=== PATIENT | female | born 1930 | race Caucasian/White ===

== ENCOUNTER 2016-12-01 15:33 | Emergency (ER) | payer MEDICARE, BC ==
[2016-12-01] MEDS ORDERED: DIPHTH,PERTUSS(ACELL),TET VAC 0.5 ML VIAL IM ONE ×2 (16:53→17:00)
--- NOTE | 2016-12-01 16:56 | ERNOTE ---
Head Injury HPI - Narrative Date of Service: 12/01/16 - General Injury to: face Time Seen by Provider: 12/01/16 16:00 Source: patient, family Exam Limitations: no limitations - Immun/Allergies/Home Medications Immunization: IMMUNIZATION HX Immunizations Up to Date Yes History of Influenza Vaccine Yes Hx Pneumococcal Vaccination Yes Allergies/Adverse Reactions: Allergies Allergy/AdvReac Type Severity Reaction Status Date / Time No Known Allergies Allergy Unverified 12/01/16 15:47 Home Medications: HOME MEDICATIONS Calcium Carbonate [Calcium] 500 mg PO DAILY 12/01/16 [Last Taken Unknown] Cholecalciferol (Vitamin D3) [Vitamin D3] 2,000 unit PO DAILY 12/01/16 [Last Taken Unknown] Cyanocobalamin (Vitamin B-12) [Vitamin B12] 2,000 mcg PO DAILY 12/01/16 [Last Taken Unknown] Glucosamine HCl 500 mg PO DAILY 12/01/16 [Last Taken Unknown] Levothyroxine Sodium [Synthroid] 50 mcg PO DAILY 12/01/16 [Last Taken Unknown] Lisinopril [Prinivil] 20 mg PO DAILY 12/01/16 [Last Taken Unknown] [place] Oil/[place]-3 Fatty Acids [Fish Oil] 1,200 mg PO DAILY 12/01/16 [Last Taken Unknown] metroNIDAZOLE [Metrocream] 45 gm TP DAILY 12/01/16 [Last Taken Unknown] - History of Present Illness Narrative: 85 y/o female brought to the ED by her daughter for a facial laceration due to a fall. The patient is unsure exactly how she fell, but believes that she stubbed her toe on a dresser and that her glasses are what cut her face. She denies any LOC. She also reports bruising to both wrists from trying to catch herself and an abrasion on her left knee. She is unsure when her last tetanus vaccination was. Occurred: just prior to arrival Location Occurred: home Severity: mild Head Injury Location: facial Method of Injury: Reports: fell Reason for Fall: Reports: tripped Loss of Consciousness: Reports: no loss of consciousness, remembers event, remembers coming to hospital Associated Symptoms: Denies: chest pain, shortness of breath, headaches, neck pain, weakness, syncope, nausea, vomiting Review of Systems - Review of Systems Constitutional: Absent: recent illness, fatigue, malaise EYE: Absent: eye pain, vision changes ENT: Absent: ear discharge, nasal drainage Respiratory: Present: See HPI Cardiology: Present: See HPI Gastrointestinal/Abdominal: Present: See HPI Genitourinary: Present: no symptoms reported Musculoskeletal: Absent: joint pain, joint swelling Skin: Present: change in color. Absent: lesions, lumps Neurological: Absent: headache, dizziness/light-headedness Endocrine: Present: no symptoms reported Hematologic/Lymphatic: Present: no symptoms reported Psych: Present: no symptoms reported - Patient's Past Medical History Patient History - Medical: Anxiety, Arthritis, Osteoporosis Patient History - Cardiac/Respiratory: Hypertension Patient History - Cancer: Colon, Skin Patient History - Surgical Procedures: No surgical history Patient History - Other: None LMP (females 10-50): Menopausal - Social History Living Situations: alone Abuse History: No History of abuse Psych History: No pertinent hx Smoking Status: Never smoker Have you smoked in the past 12 months: No Do you dip or chew tobacco: No Alcohol Use: none Drug Use: none - Immunizations Immunizations Up to Date: No Hx Pneumococcal Vaccination: Yes History of Influenza Vaccine: Yes Physical Exam - Physical Exam General Appearance: Present: wd/wn, alert, no apparent distress Eye Exam: Normal inspection: bilateral, PERRL: bilateral Ears, Nose, Throat: Present: normal ENT inspection, other - laceration to left brow, no facial deformity Neck: Present: normal inspection, nontender, supple, full range of motion. Absent: tender lateral, tender posterior midline Respiratory: Present: no respiratory distress, normal breath sounds, no accessory muscle use, lungs clear Cardiovascular/Chest: Present: regular rate, rhythm, no murmur, normal peripheral pulses Extremity Exam: Present: normal range of motion, no edema, other - Ecchymosis present on both volar wrists but nontender to palpation Neurological Exam: Present: alert, oriented, normal mood/affect, no motor/ sensory deficits Skin Exam: Present: normal color, warm/dry, other - small abrasion on left knee ED Progress - Vital Signs Patient's Vital Signs:: I have reviewed the patient's vital signs. Vital Signs: Vital Signs 12/01/16 15:47 Temperature 37.1 C Pulse Rate 77 Respiratory 18 Rate Blood Pressure 161/85 O2 Sat by Pulse 95 Oximetry - Progress/Reassessment Chief Complaint: Laceration Progress:: Improved Procedures Left lateral brow Anesthesia: Lidocaine w/ Epi Length of Repair/Wound (cm): 2.5 Wound's Depth/Shape: into subcutaneous, irregular, contused tissue Wound Explored: clean, to base, in bloodless field, no foreign body Wound Intervention: irrigated w/saline Wound Repaired With: sutures Suture Size/Type: 6-0, nylon Number of Sutures: 6 Layer Closure: Simple Wound Dressing: sterile dressing applied Complications: Pt kathie procedure well Departure Clinical Impression: Laceration of brow without complication Qualifiers: Encounter type: initial encounter Qualified Code(s): S01.81XA - Laceration without foreign body of other part of head, initial encounter - Departure Disposition: Home Follow Up Needed Condition: Good Instructions: Sutured Wound Care, [id number] Additional Instructions: Keep wound covered and dry for 24 hours May then wash gently with soap and water Apply antibiotic ointment twice a day Have sutures removed in 5 days Referrals: Nataly Gunn MD [Primary Care Provider] -
[2016-12-01 17:07] VITALS: BP 177/88
== END 2016-12-01 17:12 | disposition home or self-care (01) ==
LOC: ER 15:33
PROC: 0JQ10ZZ Repair Face Subcutaneous Tissue and Fascia, Open Approach (ICD-10-PCS; principal; 2016-12-01)
DX: S01.81XA Laceration without foreign body of other part of head, initial encounter (principal); W18.30XA Fall on same level, unspecified, initial encounter; Z91.81 History of falling; Y93.9 Activity, unspecified; Y92.003 Bedroom of unspecified non-institutional (private) residence as the place of occurrence of the external cause; I10 Essential (primary) hypertension; M19.90 Unspecified osteoarthritis, unspecified site; M81.0 Age-related osteoporosis without current pathological fracture; Z85.038 Personal history of other malignant neoplasm of large intestine; Z85.828 Personal history of other malignant neoplasm of skin; Z23 Encounter for immunization

== ENCOUNTER 2018-05-21 21:09 | Inpatient (IN) | payer BC, MEDICARE ==
--- NOTE | 2018-05-21 21:24 | ERNOTE ---
Neuro HPI ER Record Presenting Symptoms: impaired speech Time Seen by Provider: 05/21/18 21:10 Source: family Exam Limitations: no limitations Immunizations: IMMUNIZATION HX Immunizations Up to Date No: Unknown History of Influenza Vaccine No Hx Pneumococcal Vaccination No Allergies/Adverse Reactions: Allergies Allergy/AdvReac Type Severity Reaction Status Date / Time No Known Allergies Allergy Verified 05/01/18 11:55 Home Medications: HOME MEDICATIONS Cholecalciferol (Vitamin D3) [Vitamin D3] 2,000 unit PO DAILY 12/01/16 [Last Taken Unknown] Cyanocobalamin (Vitamin B-12) [Vitamin B12] 2,000 mcg PO DAILY 12/01/16 [Last Taken Unknown] levothyroxine 50 mcg tablet 50 mcg PO DAILY #90 tab 02/18/18 [Last Taken Unknown] lisinopril 20 mg tablet 20 mg PO DAILY #90 tab 02/18/18 [Last Taken Unknown] memantine 10 mg tablet 10 mg PO BID #180 tab 02/26/18 [Last Taken Unknown] - History of Present Illness Narrative: pt's daughter states that approx 90 min [employer]CRE[employer] pt had some slurred speech. She also had some difficulty walking although she has had difficulty with balance this seemed worse to her daughter. Pt has improved since onset and has no discernable deficits upon presentation. Onset: sudden onset Severity: mild - Character of Deficits New weakness: Present: other - none Altered sensation: Present: other - none Baseline Cognition: Present: alert but disoriented to time Baseline Gait: Present: walks only w/ assistance Review of Systems - Review of Systems Constitutional: Absent: recent illness, fever, chills EYE: Absent: vision changes ENT: Absent: nose congestion, nasal drainage Respiratory: Absent: shortness of breath Gastrointestinal/Abdominal: Absent: nausea, vomiting, abdominal pain Genitourinary: Absent: frequency, pain, dysuria Musculoskeletal: Absent: muscle pain Skin: Absent: rash Neurological: Present: See HPI. 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 Lovett left/right 04/16/2007 and 04/30/2007 Facial basal cell cancer Onset Date: ~10/05/15 right nasal side wall H/O colonoscopy Onset Date: ~10/30/1107/2011 - tubular adenoma with low grade dysplasia x2. 10/2011 [facility] 2 tubular adenoma, 1 sessile serrated adenoma, 1 hyperplastic polyp. 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 Onset Date: ~10/05/15 [facility] left knee Status post epidural steroid injection Onset Date: ~12/2008 L%-S1 bulging discs Family History: Family History (Last Reviewed 05/21/18 @ 21:19 by Kel Guevara DO) Father Heart disease Mother Diabetes Myocardial infarction Hypertension Brother Heart disease Social History: Preferred Language [place] Smoking Status Never smoker Abuse History No History of abuse Psych History No pertinent hx (Last Updated 05/02/18 @ 16:02 by Tima Reese MD) No Social History Section defined Physical Exam - Physical Exam General Appearance: Present: wd/wn, alert, no apparent distress, thin, cheerful Head Exam: Present: normal inspection, no evidence of injury Eye Exam: Normal inspection: bilateral, PERRL: bilateral, EOMI: bilateral Ears, Nose, Throat: Present: normal ENT inspection Neck: Present: normal inspection, nontender, supple Respiratory: Present: no respiratory distress, normal breath sounds, chest nontender, lungs clear Cardiovascular/Chest: Present: regular rate, rhythm, no murmur Gastrointestinal/Abdominal: Present: normal bowel sounds, nontender, nondistended, soft Back Exam: Present: normal inspection, normal range of motion Extremity Exam: Present: normal inspection, normal range of motion, no edema Neurological Exam: Present: alert, oriented, normal mood/affect, no motor/sensory deficits, 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 II-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 nml as tested Skin Exam: Present: normal color, warm/dry Lymphatic Exam: Present: no adenopathy Verena Coma Scale - Assess Eye Opening: Spontaneous Motor: Obeys Commands Verbal: Oriented - Total Coma Scale Total: 15 Initial Stroke Assessment - Date/Time of assessment Stroke Scale Date: 05/21/18 Stroke Scale Time: 21:10 - NIH Stroke Scale Level of Consciousness: Alert LOC Questions (Year and Age): Answers both correctly LOC Commands (open/close eyes/fist): Performs both correctly Lateral Gaze Paresis: None Visual Field Loss: No visual loss Facial Palsy: Normal movement Right Arm Motor (10 sec hold): No drift Left Arm Motor (10 sec hold): No drift Right Leg Motor (5 sec hold): No drift Left Leg Motor (5 sec hold): No drift Limb Ataxia (finger/nose heel/herron): Absent Sensory Loss (pinprick arms/legs/face): No sensory loss Language Aphasia (description/naming/reading): No aphasia; normal Dysarthria (speech clarity): Normal articulation Neglect Inattention (visual/tactile/auditory/spatial/person): No neglect Initial Stroke Scale Score:: 0 Stroke Inclusion/Exclusion Cri - Inclusion Questions: Yes Onset of symptoms <3 1/2 hours of admission to ETC: Yes - Exclusion Questions: Major symptoms rapidly improving: No Seizure at onset of stroke: No SBP>185; DBP>110 at time treatment is to begin: No Patient received Heparin or Coumadin within 48 hours: No Patient has elevated PTT or Protime/INR: No Stroke, head injury, major surgery, serious trauma in 3 mon.: No Previous intracranial hemmorhage: No Recent CO: No Known AV malformation or aneurysm: No Blood glucose <50mg/dl or >400mg/dl: No NIHSS Score <4 or >22 performed by physician: Yes - Total NIHSS Score Score:: 2 - and 0. Secondary Stroke Assessment - Date/Time of assessment Stroke Scale Time: 21:52 - NIH Stroke Scale Level of Consciousness: Alert LOC Questions (Year and Age): Answers both correctly LOC Commands (open/close eyes/fist): Performs both correctly Lateral Gaze Paresis: None Visual Field Loss: No visual loss Facial Palsy: Minor paralysis Right Arm Motor (10 sec hold): No drift Left Arm Motor (10 sec hold): No drift Right Leg Motor (5 sec hold): No drift Left Leg Motor (5 sec hold): No drift Limb Ataxia (finger/nose heel/herron): Absent Sensory Loss (pinprick arms/legs/face): No sensory loss Language Aphasia (description/naming/reading): No aphasia; normal Dysarthria (speech clarity): Slurring, intelligeble Neglect Inattention (visual/tactile/auditory/spatial/person): No neglect Secondary Stroke Scale Total:: 2 Progress - Results and Orders Patient's Lab Results:: I have reviewed the patient's lab results. Results and Orders: Laboratory Tests 05/21/18 05/21/18 05/21/18 21:30 21:30 21:30 WBC 5.8 Hgb 13.1 Hct 39.2 Plt Count 246 ESR 14 PT INR (Anticoag Therapy) PTT (Janelle) Sodium 143 H Potassium 4.0 Chloride 107 H BUN 25 H Creatinine 1.11 Est GFR (Non-Af Amer) 49 L Random Glucose 128 H Calcium 9.1 AST 20 ALT 14 L Alkaline Phosphatase 94 Total Protein 6.4 Albumin 3.3 L Urine Color Urine Appearance Urine pH Ur Specific [place] Urine Protein Urine Glucose (UA) Urine Ketones Urine Blood Urine Nitrate Urine Bilirubin Urine Urobilinogen Ur Leukocyte Esterase Urine RBC Urine WBC Ur Epithelial Cells Urine Bacteria Urine Culture Comments 05/21/18 05/21/18 21:30 23:25 WBC Hgb Hct Plt Count ESR PT 10.4 INR (Anticoag Therapy) 1.04 PTT (Janelle) 25.2 Sodium Potassium Chloride BUN Creatinine Est GFR (Non-Af Amer) Random Glucose Calcium AST ALT Alkaline Phosphatase Total Protein Albumin Urine Color Pale yellow Urine Appearance Clear Urine pH 7.0 Ur Specific [place] 1.020 Urine Protein Negative Urine Glucose (UA) Negative Urine Ketones Negative Urine Blood Negative Urine Nitrate Negative Urine Bilirubin Negative Urine Urobilinogen Normal Ur Leukocyte Esterase Negative Urine RBC None seen Urine WBC 0-5 Ur Epithelial Cells 0-5 Urine Bacteria Trace Urine Culture Comments No culture indicated - Vital Signs Patient's Vital Signs:: I have reviewed the patient's vital signs. - CT/Ultrasound CT/Ultrasound Narrative: CT head without contrast. Chronic changes, no acute hemorrhage or evidence for ischemic CVA. - Progress/Reassessment Progress:: Improved Progress Note-Subjective: 05/21/18 21:55 Pt's daughter came out and said pt was worsening. Pt does have some dysarthria at this time and mild left sided facial droop. NIHSS still only 2. 05/21/18 23:26 After going back in the patient was improved again but still had some slight dysarthria. I spoke with Dr. Herrmann at 22: 45 and she is comfortable keeping the pt for observation if the pt's daughter is, I talked with the daughter and she is very comfortable with that plan. I called Dr. Herrmann back and she is agreeable with obs. admission. Departure Clinical Impression: TIA (transient ischemic attack) - Departure Disposition: Still a patient Condition: Good
[2018-05-21 21:36] LABS: Hematocrit 39.2 % (37.0-47.0); Hemoglobin 13.1 gm/dL (12.5-16.0); Mean Cell Volume 94.9 fl (78-100); Mean Corpuscular Hemoglobin 31.7 pg (27-31); Mean Corpuscular Hgb Conc 33.4 g/dl (32-36); Mean Platelet Volume 10.6 fl (8-12.5); Neutrophil # 3.3 K/mm3 (1.3-6.0); Neutrophil % 56.7 % (42-75.0); Platelet Count 246 K/mm3 (150-450); Red Blood Count 4.13 M/mm3 (4.2-5.4); White Blood Count 5.8 K/mm3 (4.0-10.5)
[2018-05-21 21:47] LABS: Albumin * 3.3 gm/dl (3.4-5.0); Anion Gap 11.5 mmol/L (6.8-13.8); BUN/Creatinine Ratio 22.5 (9.0-21.6); Bilirubin, Total 0.4 mg/dL (0.0-1.1); Ca. Corrected For Albumin 9.3 mg/dL (8.4-10.2); Calcium * 9.1 mg/dL (7.9-10.9); Carbon Dioxide 28.5 mmol/L (24-32.6); Total Protein 6.4 gm/dL (6.2-8.2)
[2018-05-21 22:05] LABS: Prothrombin Time (Patient) 10.4 Seconds (9.0-11.0)
[2018-05-21 22:06] LABS: INR 1.04 INR (0.90-1.10); Partial Thrombolplastin Time 25.2 Seconds (24-32)
[2018-05-21 23:30] LABS: Urine Bilirubin Negative (NEGATIVE); Urine Blood Negative /ul (NEGATIVE); Urine Ketone Negative (NEGATIVE); Urine Nitrite Negative (NEGATIVE); Urine Protein Negative (NEGATIVE); Urine Urobilinogen Normal (NORMAL)
[2018-05-21 23:38] LABS: Urine Appearance Clear (CLEAR); Urine Bacteria TRACE; Urine Color Pale Yellow; Urine RBC None Seen /hpf (0-5); Urine WBC 0-5 /hpf (0-5)
[2018-05-22] MEDS ORDERED: ASPIRIN 81 MG TAB.CHEW PO ONE (07:55)
[2018-05-22] MEDS ORDERED: hydrALAZINE HCL 20 MG/ML VIAL IV PRN (09:16)
[2018-05-22] MEDS: LISINOPRIL 20 MG TABLET PO SCH (09:38)
[2018-05-22] MEDS: LEVOTHYROXINE SODIUM 50 MCG TABLET PO SCH (09:38)
[2018-05-22] MEDS: MEMANTINE HCL 10 MG TABLET PO SCH ×2 (09:38→23:45)
[2018-05-22] MEDS: NORMAL SALINE 1,000 ML IV PRN ×2 (09:40→20:43)
[2018-05-22] MEDS ORDERED: LORazepam 2 MG/ML DISP.SYRIN IV ONE ×2 (11:39→17:48)
--- NOTE | 2018-05-22 11:47 | HP ---
Chief Complaint - Chief Complaint Date of Service: 05/22/18 Time of Service: 11:20 Chief Complaint: left facial droop, slurred speech History of Present Illness: Patient with PMHx of HTN and dementia developed some slurred speech yesterday. She lives at home, but family members live close and visit her frequently. They noticed she had difficulty getting her words out, and was brought to the ED. In the ED, her symptoms of left sided facial droop and slurred speech waxed and waned. Head CT negative. She was admitted to monitor TIA symptoms. She was seen in the ED about 3 weeks ago for dizziness, and she had been undergoing PT. Her daughter reports she has been declining over the last few weeks. This morning, her symptoms have not improved. She failed a bedside swallow and is still unable to enunciate. She is able to walk with help, but lists to the left. 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 Lovett left/right 04/16/2007 and 04/30/2007 Facial basal cell cancer Onset Date: ~10/05/15 right nasal side wall H/O colonoscopy Onset Date: ~10/30/1107/2011 - tubular adenoma with low grade dysplasia x2. 10[facility]2011 [facility] tubular adenoma, 1 sessile serrated adenoma, 1 hyperplastic polyp. 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 Smoking Status Never smoker Have you smoked in the past 12 No months Do you dip or chew tobacco No Abuse History No History of abuse Psych History No pertinent hx Alcohol Use none Drug Use none (Last Updated 05/02/18 @ 16:02 by Tima Reese MD) No Social History Section defined Review Of Systems (GEN) - Review of Systems Generalized/Overall Review: Absent: Fever, Weight loss Respiratory: Absent: Cough, Shortness of Breath Cardiac: Absent: Chest Pain, Edema, Syncope Abdominal: Absent: Vomiting, Constipation Genitourinary: Present: No Symptoms Reported Musculoskeletal: Present: No Symptoms Reported Neurological: Present: Weakness - left sided facial weakness, left arm weakness Immunizations: IMMUNIZATION HX Immunizations Up to Date Yes History of Influenza Vaccine Yes Hx Pneumococcal Vaccination No Allergies/Adverse Reactions: Allergies Allergy/AdvReac Type Severity Reaction Status Date / Time No Known Allergies Allergy Verified 05/01/18 11:55 Home Medications: HOME MEDICATIONS Cholecalciferol (Vitamin D3) [Vitamin D3] 2,000 unit PO DAILY 12/01/16 [Last Taken Unknown] Cyanocobalamin (Vitamin B-12) [Vitamin B12] 2,000 mcg PO DAILY 12/01/16 [Last Taken Unknown] levothyroxine 50 mcg tablet 50 mcg PO DAILY #90 tab 02/18/18 [Last Taken Unknown] lisinopril 20 mg tablet 20 mg PO DAILY #90 tab 02/18/18 [Last Taken Unknown] memantine 10 mg tablet 10 mg PO BID #180 tab 02/26/18 [Last Taken Unknown] Exam - Exam Vital Signs: Vital Signs - Last Taken Temp 36.2 C 05/22/18 07:05 Pulse 93 05/22/18 09:40 Resp 18 05/22/18 07:05 BP 182/100 H 05/22/18 09:40 Pulse Ox 92 L 05/22/18 07:05 Constitutional: Present: Alert, No distress, Elderly Eye Exam: right eye: other - holds right eye squeezed closed tightly Respiratory: Present: normal breath sounds, no respiratory distress Cardiovascular/Chest: Present: regular rate, rhythm Abdomen: Present: soft, nontender Extremity: Absent: lower extremity edema Neurologic: Present: facial droop - mild, left sided, motor weakness - decreased left hand clinical trial head, other - restless, trying to remove gown Eye contact: Present: other - follows commands appropriately Diagnostic Studies: Abnormal Lab Results 05/21/18 05/21/18 Range/Units 21:30 21:30 RBC 4.13 L (4.2-5.4) M/mm3 MCH 31.7 H (27-31) pg Monocytes % 13.0 H (0.0-9) % Eosinophils % 3.1 H (0.0-3.0) % Sodium 143 H (132-142) mmol/L Plasma Sodium 143 H (130-142) mmol/L Chloride 107 H (97-106) mmol/L BUN 25 H (3-23) mg/dL Est GFR (Non-Af Amer) 49 L (60-130) mL/min BUN/Creatinine Ratio 22.5 H (9.0-21.6) Random Glucose 128 H (70-110) mg/dL ALT 14 L (19-67) U/L Albumin 3.3 L (3.4-5.0) gm/dl Laboratory Results WBC 5.8 K/mm3 (4.0-10.5) 05/21/18 21:30 RBC 4.13 M/mm3 (4.2-5.4) L 05/21/18 21:30 Hgb 13.1 gm/dL (12.5-16.0) 05/21/18 21:30 Hct 39.2 % (37.0-47.0) 05/21/18 21:30 MCV 94.9 fl (78-100) 05/21/18 21:30 MCH 31.7 pg (27-31) H 05/21/18 21:30 MCHC 33.4 g/dl (32-36) 05/21/18 21:30 RDW 13.0 % (11.5-14.0) 05/21/18 21:30 Plt Count 246 K/mm3 (150-450) 05/21/18 21:30 MPV 10.6 fl (8-12.5) 05/21/18 21:30 Immature Gran % (Auto) 0.20 % (0.001-0.429) 05/21/18 21:30 Immature Gran # (Auto) 0.01 K/mm3 (0.000-0.0310) 05/21/18 21:30 Neutrophils % 56.7 % (42-75.0) 05/21/18 21: Lymphocytes % 26.0 % (20-51) 05/21/18 21: Monocytes % 13.0 % (0.0-9) H 05/21/18 21:30 Eosinophils % 3.1 % (0.0-3.0) H 05/21/18 21: Basophils % 1.0 % (0.0-1.0) 05/21/18 21: Nucleated RBC % 0.0 k/mm3 (0-1) 05/21/18 21: Neutrophils # 3.3 K/mm3 (1.3-6.0) 05/21/18 21: Lymphocytes # 1.50 k/mm3 (1.5-3.5) 05/21/18 21: Monocytes # 0.8 k/mm3 (0.0-1.0) 05/21/18 21: Eosinophils # 0.2 k/mm3 (0.0-0.7) 05/21/18 21: Absolute Basophils 0.1 k/mm3 (0.0-0.1) 05/21/18 21:30 ESR 14 mm/hr (0-15) 05/21/18 21:30 PT 10.4 Seconds (9.0-11.0) 05/21/18 21:30 INR (Anticoag Therapy) 1.04 INR (0.90-1.10) 05/21/18 21:30 PTT (Janelle) 25.2 Seconds (24-32) 05/21/18 21:30 Sodium 143 mmol/L (132-142) H 05/21/18 21:30 Plasma Sodium 143 mmol/L (130-142) H 05/21/18 21:30 Potassium 4.0 mmol/L (3.4-4.6) 05/21/18 21:30 Chloride 107 mmol/L (97-106) H 05/21/18 21:30 Carbon Dioxide 28.5 mmol/L (24-32.6) 05/21/18 21:30 Anion Gap 11.5 mmol/L (6.8-13.8) 05/21/18 21:30 BUN 25 mg/dL (3-23) H 05/21/18 21:30 Creatinine 1.11 mg/dL (0.4-1.4) 05/21/18 21: Est GFR (Non-Af Amer) 49 mL/min (60-130) L 05/21/18 21: BUN/Creatinine Ratio 22.5 (9.0-21.6) H 05/21/18 21: Random Glucose 128 mg/dL (70-110) H 05/21/18 21: Calcium 9.1 mg/dL (7.9-10.9) 05/21/18: Calcium Adj for Albumin 9.3 mg/dL (8.4-10.2) 05/21/18 21: Total Bilirubin 0.4 mg/dL (0.0-1.1) 05/21/18 21: AST 20 U/L (0-48) 05/21/18 21: ALT 14 U/L (19-67) L 05/21/18 21: Alkaline Phosphatase 94 U/L (50-170) 05/21/18 21: Total Protein 6.4 gm/dL (6.2-8.2) 05/21/18 21: Albumin 3.3 gm/dl (3.4-5.0) L 05/21/18 21: Urine Color Pale yellow 05/21/18 23:25 Urine Appearance Clear (CLEAR) 05/21/18 23:25 Urine pH 7.0 pH (5.0-7.0) 05/21/18 23:25 Ur Specific [place] 1.020 SP.GR. (1.005-1.010) 05/21/18 23:25 Urine Protein Negative mg/dL (NEGATIVE) 05/21/18 23:25 Urine Glucose (UA) Negative mg/dL (NEGATIVE) 05/21/18 23:25 Urine Ketones Negative mg/dL (NEGATIVE) 05/21/18 23:25 Urine Blood Negative /ul (NEGATIVE) 05/21/18 23:25 Urine Nitrate Negative (NEGATIVE) 05/21/18 23:25 Urine Bilirubin Negative mg/dl (NEGATIVE) 05/21/18 23:25 Urine Urobilinogen Normal EU/dl (NORMAL) 05/21/18 23:25 Ur Leukocyte Esterase Negative /ul (NEGATIVE) 05/21/18 23:25 Urine RBC None seen /hpf (0-5) 05/21/18 23:25 Urine WBC 0-5 /hpf (0-5) 05/21/18 23:25 Ur Epithelial Cells 0-5 /hpf (0-5) 05/21/18 23:25 Urine Bacteria Trace (NONE) 05/21/18 23:25 Urine Culture Comments No culture indicated 05/21/18 23:25 Assessment/Plan - Assessment/Plan (1) CVA (cerebral vascular accident) Assessment: As her symptoms of slurred speech, left facial and left arm weakness are not improving, I strongly suspect CVA, and not a TIA. MRI pending. Initial CT was negative. EKG did not show acute abnormalities. Would recommend echo and US as an outpatient. Speech eval pending because she was not able to swallow water. Hold po meds. Continue IV fluids. If she is unable to swallow in 2-3 days, will discuss placing a corpak. No acute abnormalities on CBC, CMP, urine studies. PT/OT eval pending. Discussed her case with Dr. Lyle, who agreed with the above plan. Problem: Suspected (2) Hypertension Assessment: Since I suspect she is having a CVA, will allow permissive hypertension for the first 24 hours. Her BP is currently around 180's/100's. If her BP is still high this evening, will add IV labetalol. Problem: Chronic
[2018-05-22] MEDS ORDERED: LORazepam 2 MG/ML DISP.SYRIN IV PRN (16:56)
[2018-05-22 18:24] LABS: BUN/Creatinine Ratio 15.2 (9.0-21.6); Blood Urea Nitrogen 16 mg/dL (3-23); Calcium * 9.3 mg/dL (7.9-10.9); Carbon Dioxide 22.8 mmol/L (24-32.6); Chloride 105 mmol/L (97-106); Estimated Creat Clear 27.4; Glucose * 144 mg/dL (70-110); Potassium 3.8 mmol/L (3.4-4.6); Sodium 139 mmol/L (132-142); Troponin I Less than 0.017 ng/mL (0.00-0.10)
[2018-05-22] MEDS: HALOPERIDOL LACTATE 5 MG/ML VIAL IV PRN (20:46)
[2018-05-23] MEDS: LORazepam 2 MG/ML DISP.SYRIN IV PRN ×2 (01:02→07:07)
[2018-05-23] MEDS: HALOPERIDOL LACTATE 5 MG/ML VIAL IV PRN (05:55)
[2018-05-23] MEDS: NORMAL SALINE 1,000 ML IV PRN (07:06)
[2018-05-23] MEDS: LEVOTHYROXINE SODIUM 50 MCG TABLET PO SCH (07:12)
[2018-05-23] MEDS ORDERED: LABETALOL HCL 5 MG/ML VIAL IV ONE (07:36)
[2018-05-23] MEDS ORDERED: LABETALOL HCL 5 MG/ML VIAL IV PRN (07:42)
[2018-05-23 08:46] VITALS: BP 157/106
[2018-05-23] MEDS ORDERED: LORazepam 2 MG/ML DISP.SYRIN IV ONE (09:08)
[2018-05-23] MEDS: LISINOPRIL 20 MG TABLET PO SCH (09:17)
[2018-05-23] MEDS: MEMANTINE HCL 10 MG TABLET PO SCH (09:17)
--- NOTE | 2018-05-23 11:00 | PN ---
Subjective - Date and Time Seen Date: 05/23/18 Time: 10:59 Subjective Narrative: Patient had significant agitation overnight that did not respond to IV ativan. Haldol was added to her regimen. Patient seen and examined after her echocardiogram. She was trying to leave the bed during the procedure, and 1 mg ativan was administered, so she is sleeping through my exam. Objective - Review of Systems Generalized/Overall Review: Denies: Fever Respiratory: Denies: Cough Cardiac: Denies: Edema Abdominal: Denies: Vomiting Neurological: Reports: Other - significant agitation - Vitals Vitals: Last Vital Signs Temp 36.4 C 05/23/18 09:00 Pulse 103 H 05/23/18 09:00 Resp 18 05/23/18 09:00 BP 157/106 H 05/23/18 09:00 Pulse Ox 96 05/23/18 09:00 - Abnormal Lab Findings Abnormal Lab Findings: Abnormal Lab Results 05/22/18 Range/Units 18:02 Carbon Dioxide 22.8 L (24-32.6) mmol/L Anion Gap 15.0 H (6.8-13.8) mmol/L Est GFR (Non-Af Amer) 52 L (60-130) mL/min Random Glucose 144 H (70-110) mg/dL - Exam Constitutional: Present: No distress - sleeping during exam, Elderly Respiratory: Present: normal breath sounds, no respiratory distress Cardiovascular/Chest: Present: tachycardia - 100 Abdomen: Present: soft, nondistended Extremity: Absent: lower extremity edema Neurologic: Present: other - does not waken for exam Assessment/Plan - Problems/Diagnosis (1) CVA (cerebral vascular accident) Problem: Acute Narrative: MRI from yesterday reads: "Early ischemia within the right insular cortex which extends in the right basal ganglia and two gyri within the mid right parietal lobe." Negative carotid ultrasound. She has had worsening delirium in the last 24 hours, requiring ativan and haldol to keep her from hurting herself. Her mentation has decreased, and she has not been communicative. She is unable to swallow or work with PT. Family currently unavailable to discuss goals, but she is an appropriate hospice candidate. Will need to discuss changed her code status. She has not had nutrition in several days, and will need to discuss family's wishes. (2) Hypertension Problem: Chronic Narrative: Administer 10 mg IV labetalol for systolic BP greater than 160.
[2018-05-23] MEDS ORDERED: BISACODYL 10 MG SUPP.RECT RC PRN (12:34)
[2018-05-23] MEDS ORDERED: ATROPINE SULFATE 150 DROP BTL SL PRN (12:34)
[2018-05-23] MEDS ORDERED: MORPHINE SULFATE 10 MG/0.5 ML SYRINGE PO PRN (12:34)
[2018-05-23] MEDS ORDERED: ONDANSETRON HCL/PF 2 MG/ML VIAL IV PRN (12:34)
[2018-05-23] MEDS ORDERED: POLYVINYL ALCOHOL 150 DROP BTL EACHEYE PRN (12:34)
--- NOTE | 2018-05-23 12:42 | PN ---
Javier Note - Interim Date: 05/23/18 Time: 12:40 Narrative: 05/23/18 12:40 Discussed goals of care with family. She had previously requested not to be kept alive on machines, and code status changed to DNR. Will change goals to hospice and comfort measures only. They would like her to go to a facility for hospice care. They expressed concern regarding her agitation, and would like to schedule medication to avoid that, so will schedule haloperidol q6h. Case management is working on placement, and appreciate their assistance.
[2018-05-23] MEDS ORDERED: SCOPOLAMINE HYDROBROMIDE 1.5 MG PATC TD SCH (12:45)
[2018-05-23] MEDS ORDERED: HALOPERIDOL LACTATE 5 MG/ML VIAL IV SCH (13:00)
[2018-05-23] MEDS: HALOPERIDOL LACTATE 2 MG/ML BTL PO SCH ×2 (14:04→19:45)
[2018-05-23] MEDS: MIDAZOLAM HCL 2 MG/ML PO PRN ×2 (15:41→20:40)
[2018-05-24] MEDS: HALOPERIDOL LACTATE 2 MG/ML BTL PO SCH ×3 (01:57→12:46)
[2018-05-24] MEDS: MIDAZOLAM HCL 2 MG/ML PO PRN ×3 (02:48→12:23)
--- NOTE | 2018-05-24 12:01 | ECHO ---
This report is available in the EMR
--- NOTE | 2018-05-24 12:20 | DS ---
(1) CVA (cerebral vascular accident) Problem: Acute (2) Hypertension Problem: Chronic Description of Stay: Patient with PMHx of HTN and dementia was brought to the ED after family members noticed she was having intermittent difficulty speaking and left sided facial droop. In the ED, her symptoms continued to wax and wane, and she was admitted for observation for TIA. CT head did not show acute findings. The following morning, her symptoms were still present, and it was felt she was likely having a stroke. She was having difficulty with her left arm. MRI showed "early ischemia within the right insular cortex which extends in the right basal ganglia and two gyri within the mid right parietal lobe." She was unable to swallow liquids, and lost the ability to conversate. She became increasingly agitated, and required ativan and haldol to keep her safe and avoid hurting herself. Extensive discussions were held with family about her poor prognosis, and they opted to pursue hospice measures. She had an advance directive, and had stated she did not want to be kept alive with machines or life prolonging measures. She was accepted by [facility], and will transfer her there on discharge. Procedures Performed: none Results and Findings: Lab Pending Results 05/21/18 21:30: WBC 5.8, RBC 4.13 L, Hgb 13.1, Hct 39.2, MCV 94.9, MCH 31.7 H, MCHC 33.4, RDW 13.0, Plt Count 246, MPV 10.6, Immature Gran % (Auto) 0.20, Immature Gran # (Auto) 0.01, Neutrophils % 56.7, Lymphocytes % 26.0, Monocytes % 13.0 H, Eosinophils % 3.1 H, Basophils % 1.0, Nucleated RBC % 0.0, Neutrophils # 3.3, Lymphocytes # 1.50, Monocytes # 0.8, Eosinophils # 0.2, Absolute Basophils 0.1 05/21/18 21:30: ESR 14 05/21/18 21:30: Sodium 143 H, Plasma Sodium 143 H, Potassium 4.0, Chloride 107 H, Carbon Dioxide 28.5, Anion Gap 11.5, BUN 25 H, Creatinine 1.11, Est GFR (Non- Af Amer) 49 L, BUN/Creatinine Ratio 22.5 H, Random Glucose 128 H, Calcium 9.1, Calcium Adj for Albumin 9.3, Total Bilirubin 0.4, AST 20, ALT 14 L, Alkaline Phosphatase 94, Total Protein 6.4, Albumin 3.3 L 05/21/18 21:30: PT 10.4, INR (Anticoag Therapy) 1.04, PTT (Janelle) 25.2 05/21/18 23:25: Urine Color Pale yellow, Urine Appearance Clear, Urine pH 7.0, Ur Specific [place] 1.020, Urine Protein Negative, Urine Glucose (UA) Negative, Urine Ketones Negative, Urine Blood Negative, Urine Nitrate Negative, Urine Bilirubin Negative, Urine Urobilinogen Normal, Ur Leukocyte Esterase Negative, Urine RBC None seen, Urine WBC 0-5, Ur Epithelial Cells 0-5, Urine Bacteria Trace, Urine Culture Comments No culture indicated 05/22/18 18:02: Sodium 139, Plasma Sodium 140, Potassium 3.8, Chloride 105, Carbon Dioxide 22.8 L, Anion Gap 15.0 H, BUN 16, Creatinine 1.05, Est GFR (Non- Af Amer) 52 L, BUN/Creatinine Ratio 15.2, Random Glucose 144 H, Calcium 9.3, Troponin I Less than 0.017 Discharge Location: [facility] Disposition: Hospice Home Home Health Agency: [facility] Condition: Poor Level of Care: ICF Discharge Activity: Activity as tolerated Discharge Diet: General/regular food - As tolerated. Speech therapy recommends NPO due to aspiration, but she is hospice and can eat if she wishes Referrals: Tima Reese MD [Primary Care Provider] - Additional Patient Instructions (free text): Please fax discharge orders to [facility] at [phone]. Dr Reese's office is aware that patient is going to [facility] today for hospice. Prescriptions (Any new or edited meds): Atropine Sulfate [Atropine 1% Ophthalmic Solution] 2 drop SL Q2H PRN #1 btl PRN Reason: Secretions Bisacodyl [Dulcolax Suppository] 10 mg RC PRN PRN #5 supp.rect PRN Reason: Constipation Haloperidol Lactate [Haldol Oral Concentrate] 1 mg PO Q4H #1 btl Midazolam HCl [Versed 2 MG/Ml Syrup] 2.5 mg PO Q4H PRN #1 bottle PRN Reason: Anxiety Morphine Sulfate [Morphine Sulfate Conc. Oral Solution] 2 mg PO Q2H PRN #1 bottle PRN Reason: Severe Pain (Pain Scale 7-10) Ondansetron [Zofran Odt] 4 mg PO Q8H PRN #20 tab PRN Reason: Nausea Polyvinyl Alcohol [Artificial Tears] 2 drop EACHEYE PRN PRN #1 btl PRN Reason: Dry Eye(S) Scopolamine [Transderm-Scop] 1.5 mg TD Q72H #5 patch.[id number] Complete Home Medications List: Complete Home Medication List: Atropine Sulfate [Atropine 1% Ophthalmic Solution] 2 drop SL Q2H PRN #1 btl 05/24/18 Bisacodyl [Dulcolax Suppository] 10 mg RC PRN PRN #5 supp.rect 05/24/18 Haloperidol Lactate [Haldol Oral Concentrate] 1 mg PO Q4H #1 btl 05/24/18 Midazolam HCl [Versed 2 MG/Ml Syrup] 2.5 mg PO Q4H PRN #1 bottle 05/24/18 Morphine Sulfate [Morphine Sulfate Conc. Oral Solution] 2 mg PO Q2H PRN #1 bottle 05/24/18 Ondansetron [Zofran Odt] 4 mg PO Q8H PRN #20 tab 05/24/18 Polyvinyl Alcohol [Artificial Tears] 2 drop EACHEYE PRN PRN #1 btl 05/24/18 Scopolamine [Transderm-Scop] 1.5 mg TD Q72H #5 patch.td72 05/24/18
[2018-05-24] MEDS ORDERED: HALOPERIDOL LACTATE 2 MG/ML BTL PO ONE ×2 (13:01→13:42)
== END 2018-05-24 14:35 | disposition hospice, home (50) | DRG 65 ==
LOC: MS 21:09 → ER 21:09 → MS 05-22 00:04
PROVIDERS: ADMIT Family Medicine; ATTEND Family Medicine
CPT/HCPCS: 36415; 70450; 70551; 71010; 71045; 80048; 80053; 81001; 84484; 85025; 85610; 85652; 85730; 92526; 92610; 93005; 93306; 93880; 97162; 97166; 97530; 99285; G8978; G8979; G8980; G8987; G8988; G8989